=== PATIENT | male | born 1990 | race African-American/Black ===

== ENCOUNTER 2021-08-18 23:11 | Emergency (ER) | payer MEDICAID ==
[~2021-08-18] VITALS: Ht 198.1 cm; Wt 122.5 kg
[2021-08-18 23:14] VITALS: BP_SYST 163
--- NOTE | 2021-08-18 23:15 | NUR ---
Placed in room 7 . Placed on winder helper, blood pressure machine and pulse oximeter. To gown for exam. Side rails up. Report given to MAGNO WHITMORE(CARROLL).
--- NOTE | 2021-08-18 23:30 | NUR ---
ER Dr. Mejia at bedside examining patient.
[2021-08-18] MEDS ORDERED: predniSONE 20 MG TABLET PO ONE (23:45)
--- NOTE | 2021-08-18 23:52 | NUR ---
Patient given written and verbal discharge instructions and verbalizes understanding. ER MD Mejia discussed with patient the results and treatment provided. Patient in stable condition. ID arm band removed. Rx of Prednione given. Opportunity for questions provided and answered. Medication side effect fact sheet provided.
== END 2021-08-18 23:52 | disposition home or self-care (01) ==
LOC: SED 23:11
DX: L50.9 Urticaria, unspecified (principal); I10 Essential (primary) hypertension
CPT/HCPCS: 99283; J7512